=== PATIENT | female | born 1995 | race Caucasian/White ===

== ENCOUNTER 2017-01-11 05:18 | Emergency (ER) | payer MEDICAID ==
[2017-01-11 06:32] LABS: BASOPHIL % 0.2 % (0-2); PLATELET COUNT 284 x10^3mcL (130-400); RED CELL DISTRIBUTION WIDTH 13.7 % (11.5-14.5)
[2017-01-11 06:36] LABS: UA SPECIFIC GRAVITY 1.025 (1.005-1.035); microscopic required? YES; urine erythrocyte TRACE (NEGATIVE)
[2017-01-11 06:46] LABS: CALCIUM 9.2 mg/dL (8.5-10.1); CARBON DIOXIDE 25.4 mmol/L (21-32); CHLORIDE SERUM 103 mmol/L (98-107); CREATININE SERUM 0.5 mg/dL (0.6-1.0); GFR1 > 60 mL/min; GLUCOSE SERUM 103 mg/dL (74-106); POTASSIUM SERUM 3.9 mmol/L (3.5-5.1); SODIUM SERUM 137 mmol/L (136-145)
[2017-01-11 06:52] LABS: ALBUMIN 3.6 g/dL (3.4-5.0); ALKALINE PHOSPHATASE 83 U/L (46-116); ALT/SGPT 20 U/L (14-59); AST/SGOT 15 U/L (15-37); BILIRUBIN TOTAL 0.5 mg/dL (0.20-1.00); TOTAL PROTEIN, SERUM 7.9 g/dL (6.4-8.2)
[2017-01-11 08:45] VITALS: BP 120/65
== END 2017-01-11 08:45 | disposition home or self-care (01) ==
LOC: ED 05:18
PROVIDERS: Emergency Medicine
DX: O21.0 Mild hyperemesis gravidarum (principal); O23.41 Unspecified infection of urinary tract in pregnancy, first trimester; K21.9 Gastro-esophageal reflux disease without esophagitis; Z3A.00 Weeks of gestation of pregnancy not specified
CPT/HCPCS: J2405; J7030